=== PATIENT | female | born 1980 | race Caucasian/White ===

== ENCOUNTER 2018-10-11 18:50 | Emergency (ER) | payer MEDICAID ==
[~2018-10-11] VITALS: Ht 157.5 cm; Wt 61.4 kg
[~2018-10-11 18:50] MED LIST: CLIN-96 PO; NO HOME MEDS
[2018-10-11] MEDS ORDERED: AMOX-422 PO (19:37)
[2018-10-11] MEDS ORDERED: TETanus/Pertussis (Acell)/Diphther VAC/PF (Tdap-Adult) 0.5ml syringe IM ONE (19:40)
[2018-10-11] MEDS ORDERED: ALBU18HF2 INH (19:42)
[2018-10-11] MEDS ORDERED: albuterol 2.5 mg/0.5ml nebule NEB ONE (19:45)
[2018-10-11] MEDS ORDERED: acetaminophen 325mg tablet PO ONE (19:45)
[2018-10-11] MEDS ORDERED: albuterol 2.5 MG/3 ML nebule NEB ONE (19:45)
[2018-10-11 20:32] VITALS: BP 120/85
== END 2018-10-11 20:33 | disposition home or self-care (01) ==
LOC: ER 18:50
DX: S91.331A Puncture wound without foreign body, right foot, initial encounter (principal); J45.909 Unspecified asthma, uncomplicated; F12.90 Cannabis use, unspecified, uncomplicated; F15.90 Other stimulant use, unspecified, uncomplicated; Z56.0 Unemployment, unspecified; Z98.890 Other specified postprocedural states; W22.8XXA Striking against or struck by other objects, initial encounter; Y93.89 Activity, other specified; Y92.89 Other specified places as the place of occurrence of the external cause; Y99.9 Unspecified external cause status
CPT/HCPCS: 73630; 90471; 90715; 94640; 94760; 99283; J7611

== ENCOUNTER 2019-01-23 14:25 | Emergency (ER) | payer MEDICAID ==
[~2019-01-23] VITALS: Ht 157.5 cm; Wt 59.1 kg
[~2019-01-23 14:25] MED LIST changes: +ALBU18HF2 INH
[2019-01-23 14:58] VITALS: BP 113/74
[2019-01-23] MEDS ORDERED: SULF1TAB49 PO (15:39)
== END 2019-01-23 15:52 | disposition home or self-care (01) ==
LOC: ER 14:25
DX: L03.811 Cellulitis of head [any part, except face] (principal); J45.909 Unspecified asthma, uncomplicated; F12.90 Cannabis use, unspecified, uncomplicated; F15.90 Other stimulant use, unspecified, uncomplicated; F17.200 Nicotine dependence, unspecified, uncomplicated; Z98.890 Other specified postprocedural states; Z56.0 Unemployment, unspecified; Z79.899 Other long term (current) drug therapy
CPT/HCPCS: 99283

== ENCOUNTER 2019-04-20 13:16 | Emergency (ER) | payer MEDICAID ==
[~2019-04-20] VITALS: Ht 157.5 cm; Wt 64.0 kg
[~2019-04-20 13:16] MED LIST changes: +CLIN-90 PO; -CLIN-96 PO
[2019-04-20 13:25] VITALS: BP 104/54
[2019-04-20] MEDS ORDERED: AMOX-422 PO (14:20)
[2019-04-20] MEDS ORDERED: IBUP-1984 PO (14:20)
== END 2019-04-20 14:41 | disposition home or self-care (01) ==
LOC: ER 13:16
DX: J20.9 Acute bronchitis, unspecified (principal); J32.8 Other chronic sinusitis; J45.909 Unspecified asthma, uncomplicated; F12.90 Cannabis use, unspecified, uncomplicated; F15.90 Other stimulant use, unspecified, uncomplicated; Z56.0 Unemployment, unspecified; Z79.2 Long term (current) use of antibiotics; Z79.899 Other long term (current) drug therapy
CPT/HCPCS: 71046; 99283

== ENCOUNTER 2020-11-08 12:17 | Emergency (ER) | payer SELFPAY ==
[~2020-11-08] VITALS: Ht 157.5 cm; Wt 68.2 kg
[~2020-11-08 12:17] MED LIST changes: -CLIN-90 PO; +CLIN-97 PO
[2020-11-08 12:40] VITALS: BP 155/66
--- NOTE | 2020-11-08 16:10 | NUR ---
Patient not in lobby for third time. Attempted to call patients listed number at which it was the wrong number. Dr. Franklinfs aware.
== END 2020-11-08 16:12 | disposition left against medical advice (07) ==
LOC: ER 12:18
DX: M54.9 Dorsalgia, unspecified (principal); Z53.21 Procedure and treatment not carried out due to patient leaving prior to being seen by health care provider
CPT/HCPCS: 93005

== ENCOUNTER 2021-05-31 15:28 | Emergency (ER) | payer MEDICAID ==
[~2021-05-31] VITALS: Ht 157.5 cm; Wt 59.1 kg
[2021-05-31 15:41] VITALS: BP 136/85
[2021-05-31] MEDS ORDERED: diazepam 5mg tablet PO ONE (15:50)
[2021-05-31] MEDS ORDERED: ketorolac trometh. 30mg/ml inj. IM ONE (15:50)
[2021-05-31] MEDS ORDERED: IBUP-1984 PO (17:03)
[2021-05-31] MEDS ORDERED: CYCL-1 PO (17:03)
== END 2021-05-31 17:25 | disposition left against medical advice (07) ==
LOC: ER 15:29
DX: M25.511 Pain in right shoulder (principal); J45.909 Unspecified asthma, uncomplicated; F12.90 Cannabis use, unspecified, uncomplicated; F15.90 Other stimulant use, unspecified, uncomplicated; Z87.440 Personal history of urinary (tract) infections; Z98.890 Other specified postprocedural states; Z56.0 Unemployment, unspecified; Z79.2 Long term (current) use of antibiotics; Z79.899 Other long term (current) drug therapy
CPT/HCPCS: 73030; 99283

== ENCOUNTER 2021-11-18 16:23 | Emergency (ER) | payer MEDICAID ==
[~2021-11-18] VITALS: Ht 157.5 cm; Wt 73.6 kg
[~2021-11-18 16:23] MED LIST changes: +CYCL-1 PO
[2021-11-18 17:29] LABS: BASOPHILS # (AUTO) 0.1 X10'3 (0-0.2); BASOPHILS % (AUTO) 0.7 % (0-1); EOSINOPHILS # (AUTO) 0.5 X10'3 (0-0.9); EOSINOPHILS % (AUTO) 4.6 % (0-6); HEMATOCRIT 38.6 % (35.0-45.0); LYMPHOCYTES # (AUTO) 2.5 X10'3 (1.1-4.8); LYMPHOCYTES % (AUTO) 25.2 % (21-51); MEAN CORPUSCULAR HEMOGLOBIN 28.1 PG (27.0-31.0); MEAN CORPUSCULAR HGB CONC 33.6 g/dL (33.0-36.5); MEAN CORPUSCULAR VOLUME 83.6 FL (78-98); MEAN PLATELET VOLUME 9.4 FL (7.4-10.4); MONOCYTES # (AUTO) 0.8 X10'3 (0-0.9); MONOCYTES % (AUTO) 7.5 % (2-12); NEUTROPHILS # (AUTO) 6.3 X10'3 (1.8-7.7); PLATELET COUNT 237 X10'3 (140-440); RED BLOOD COUNT 4.62 X10'6 (4.20-5.60); WHITE BLOOD COUNT 10.1 X10'3 (4.5-11.0)
[2021-11-18 17:30] LABS: CLARITY,URINE CLEAR (Clear); COLOR,URINE YELLOW (Yellow); GLUCOSE, URINE NEGATIVE (Neg); KETONES,URINE NEGATIVE (Neg); LEUKOCYTE ESTERASE ,URINE NEGATIVE (Neg); NITRITES, URINE NEGATIVE (Neg); OCCULT BLOOD,URINE NEGATIVE (Neg); PROTEIN,URINE NEGATIVE (Neg); UROBILINOGEN,URINE 0.2 E.U/dL (0.2-1.0)
[2021-11-18 17:31] LABS: UA COLLECTION TYPE CLN CATCH MIDSTREAM
[2021-11-18 17:32] LABS: URINE HCG NEGATIVE (NEG)
[2021-11-18 17:41] LABS: ALANINE AMINOTRANSFERASE 56 U/L (12-78); ALBUMIN 3.8 G/DL (3.4-5.0); ALBUMIN/GLOBULIN RATIO 1.1 (1.1-1.5); ALKALINE PHOSPHATASE 93 IU/L (46-116); ANION GAP 6 (8-16); ASPARTATE AMINO TRANSFERASE 35 U/L (10-37); BILIRUBIN,TOTAL 0.2 MG/DL (0.1-1.0); BLOOD UREA NITROGEN 10 MG/DL (7-18); BUN/CREATININE RATIO 15.2 (6.6-38.0); CALCIUM 9.2 MG/DL (8.5-10.1); CHLORIDE 106 MMOL/L (99-107); CREATININE 0.66 MG/DL (0.40-0.90); GLUCOSE 91 MG/DL (70-104); LIPASE 145 U/L (73-393); POTASSIUM 3.6 MMOL/L (3.5-5.1); SODIUM 139 MMOL/L (135-145); TOTAL CARBON DIOXIDE 26.6 MMOL/L (24-32); TOTAL PROTEIN 7.4 G/DL (6.4-8.2); eGFR > 90 ML/MIN
[2021-11-18] MEDS ORDERED: DOCU-148 PO (21:27)
[2021-11-18 21:30] VITALS: BP 135/90
== END 2021-11-18 21:32 | disposition home or self-care (01) ==
LOC: ER 16:24
DX: O26.893 Other specified pregnancy related conditions, third trimester (principal); R10.30 Lower abdominal pain, unspecified; J45.909 Unspecified asthma, uncomplicated; F17.210 Nicotine dependence, cigarettes, uncomplicated; F15.20 Other stimulant dependence, uncomplicated; Z3A.28 28 weeks gestation of pregnancy; Z56.0 Unemployment, unspecified
CPT/HCPCS: 36415; 74176; 80053; 81003; 81025; 83690; 85025; 99284

== ENCOUNTER 2022-11-08 19:29 | Emergency (ER) | payer MEDICAID ==
[~2022-11-08] VITALS: Ht 157.5 cm; Wt 68.1 kg
[~2022-11-08 19:29] MED LIST changes: +DOCU-148 PO
[2022-11-08 19:37] VITALS: BP 130/85
[2022-11-08] MEDS ORDERED: PRED20TA PO (20:52)
[2022-11-08] MEDS ORDERED: CEPH250T PO (20:52)
[2022-11-08] MEDS ORDERED: dexamethasone sod phosphate 10mg/ml inj PO STA (20:53)
[2022-11-08] MEDS ORDERED: cephalexin 250mg capsule PO ONE (20:55)
== END 2022-11-08 21:23 | disposition home or self-care (01) ==
LOC: ER 19:30
DX: L03.114 Cellulitis of left upper limb (principal); L03.113 Cellulitis of right upper limb; Z56.0 Unemployment, unspecified; Z79.899 Other long term (current) drug therapy
CPT/HCPCS: 99283; J1100

== ENCOUNTER 2024-02-15 11:40 | Emergency (ER) | payer MEDICAID ==
[~2024-02-15] VITALS: Ht 157.5 cm; Wt 76.4 kg
[2024-02-15] MEDS: triamcinolone acetonide 40mg/ml inj IM ONE (13:37)
[2024-02-15 13:39] VITALS: BP 143/86; PULSE 89; RESP 16; TEMP 98.1; O2SAT 99
== END 2024-02-15 13:35 | disposition home or self-care (01) ==
LOC: ER 11:41
DX: L50.9 Urticaria, unspecified (principal); M25.511 Pain in right shoulder; J45.909 Unspecified asthma, uncomplicated; F15.90 Other stimulant use, unspecified, uncomplicated; Z79.899 Other long term (current) drug therapy; Z87.440 Personal history of urinary (tract) infections
CPT/HCPCS: 73030; 96372; 99283; J3301